=== PATIENT | female | born 2000 | race Caucasian/White ===

== ENCOUNTER 2024-02-03 23:33 | Inpatient (IN) | payer OTHER ==
[~2024-02-03] VITALS: Ht 157.5 cm; Wt 57.7 kg
[2024-02-04 00:35] LABS: ETHYL ALCOHOL (ETHANOL) < 0.003 % (0.000-0.010)
[2024-02-04 00:36] LABS: SALICYLATE LEVEL < 3.0 MG/DL (<30)
[2024-02-04 00:37] LABS: ALBUMIN 4.3 G/DL (3.2-5.2); ALKALINE PHOSPHATASE 60 U/L (35-104); ALT/SGPT 16 U/L (7.0-40); AST/SGOT 20 U/L (<34); BILIRUBIN,DIRECT 0.2 MG/DL (<0.4); BILIRUBIN,TOTAL 0.5 MG/DL (0.3-1.2); BLOOD UREA NITROGEN 14 MG/DL (9-23); CALCIUM LEVEL 9.7 MG/DL (8.5-10.1); CARBON DIOXIDE LEVEL 24 MMOL/L (20-31); CHLORIDE LEVEL 108 MMOL/L (98-107); CREATININE FOR GFR 0.77 MG/DL (0.55-1.30); GLOMERULAR FILTRATION RATE > 60.0 (>60); GLUCOSE, FASTING 97 MG/DL (60-100); POTASSIUM SERUM 3.5 MMOL/L (3.5-5.1); SODIUM LEVEL 142 MMOL/L (136-145); TOTAL PROTEIN 7.7 G/DL (5.7-8.2)
[2024-02-04 00:38] LABS: THYROID STIMULATING HORMONE 2.869 uIU/ML (0.55-4.78)
[2024-02-04 00:50] LABS: HCG, SERUM QUALITATIVE NEGATIVE (NEGATIVE); HEMATOCRIT 38.2 % (36.0-47.0); HEMOGLOBIN 13.2 g/dl (12.0-15.5); MEAN CORPUSCULAR HEMOGLOBIN 30.4 pg (27.0-33.0); MEAN CORPUSCULAR HGB CONC 34.6 g/dl (32.0-36.5); PLATELET COUNT, AUTOMATED 325 10^3/uL (150-450); RED BLOOD COUNT 4.34 10^6/uL (4.00-5.40)
[2024-02-04 01:05] LABS: AMPHETAMINES LEVEL URINE NEGATIVE (NEGATIVE); BARBITURATES URINE NEGATIVE (NEGATIVE); BENZODIAZEPINES URINE NEGATIVE (NEGATIVE)
[2024-02-04 01:06] LABS: CANNABINOIDS URINE NEGATIVE (NEGATIVE); COCAINE METABOLITE URINE NEGATIVE (NEGATIVE); METHADONE URINE NEGATIVE (NEGATIVE); OPIATES URINE NEGATIVE (NEGATIVE); PHENCYCLIDINE URINE NEGATIVE (NEGATIVE)
[2024-02-04] MEDS ORDERED: MAALOX 30 ML SUSP *UDC PO PRN (03:25)
[2024-02-04] MEDS ORDERED: MOM 30ML SUSPENSION UDC PO PRN (03:25)
[2024-02-04] MEDS ORDERED: ACETAMINOPHEN 325 MG TAB PO PRN (03:25)
[2024-02-04] MEDS ORDERED: IBUPROFEN 400MG TAB PO PRN (03:25)
[2024-02-04] MEDS ORDERED: diphenhydrAMINE 25MG CAP PO PRN (03:25)
[2024-02-04 04:14] VITALS: BP 125/83; TEMP 97.3; O2SAT 99
[2024-02-04] MEDS ORDERED: HOME MED LIST COMPLETE! XX SCH (09:30)
[2024-02-04] MEDS: VENLAFAXINE **XR** 37.5 MG CAPSULE PO SCH (10:33)
[2024-02-04 14:45] VITALS: BP 117/80; TEMP 97; O2SAT 100
[2024-02-05 06:21] VITALS: BP 116/62; TEMP 97.2; O2SAT 100
[2024-02-05] MEDS: VENLAFAXINE **XR** 37.5 MG CAPSULE PO ONE (12:14)
[2024-02-05 16:16] VITALS: BP 108/63; TEMP 98.6; O2SAT 98
[2024-02-05] MEDS: traZODone 50 MG TAB PO PRN (20:20)
[2024-02-06 06:27] VITALS: BP 100/59; TEMP 98.5; O2SAT 99
[2024-02-06] MEDS: VENLAFAXINE **XR** 75MG CAPSULE PO SCH (09:07)
[2024-02-06 15:35] VITALS: BP 111/63; TEMP 98.7; O2SAT 99
[2024-02-07 06:35] VITALS: BP 118/68; TEMP 97.8; O2SAT 100
[2024-02-07 16:27] VITALS: BP 111/75; TEMP 98; O2SAT 100
[2024-02-07] MEDS: NICOTINE 14 MG/24 HR TRANSDERMAL TD SCH (19:02)
[2024-02-08 06:37] VITALS: BP 108/59; TEMP 97.9; O2SAT 97
[2024-02-08] MEDS ORDERED: VENL75CA47 PO (09:00)
[2024-02-08] MEDS ORDERED: TRAZ-252 PO ×2 (09:00→14:16)
== END 2024-02-08 11:56 | disposition home or self-care (01) | DRG 881 ==
LOC: EDBD 23:33 → M ED 23:33 → M ED INP 02-04 03:22 → M PSY 02-04 04:03
PROVIDERS: ADMIT Psychiatry & Neurology Neurology; ATTEND Psychiatry & Neurology Psychiatry
DX: F32.A Depression, unspecified (principal); R45.851 Suicidal ideations; F43.21 Adjustment disorder with depressed mood; Z63.4 Disappearance and death of family member; Z83.3 Family history of diabetes mellitus